=== PATIENT | female | born 2000 | race African-American/Black ===

== ENCOUNTER 2021-07-01 00:43 | Emergency (ER) | payer MEDICAID ==
[~2021-07-01] VITALS: Ht 152.4 cm; Wt 91.0 kg
[2021-07-01 01:39] LABS: CLARITY URINE CLOUDY (CLEAR); COLOR URINE YELLOW (YELLOW); KETONES URINE 3+ (NEGATIVE); LEUKOCYTE ESTERASE URINE NEGATIVE (NEGATIVE); NITRITE URINE NEGATIVE (NEGATIVE); OCCULT BLOOD URINE TRACE (NEGATIVE); PROTEIN URINE TRACE (NEGATIVE); SPECIFIC GRAVITY URINE 1.024 (1.005-1.030)
[2021-07-01] MEDS ORDERED: ACETAMINOPHEN 500MG TABLET PO ONE (01:45)
[2021-07-01] MEDS ORDERED: IBUPROFEN 800MG TABLET PO ONE (01:45)
[2021-07-01] MEDS ORDERED: KETOROLAC 30MG/ML VIAL IM ONE (02:00)
[2021-07-01] MEDS ORDERED: HYDROCODONE/ACETAMINOPHEN 5/325MG TABLET PO ONE (03:15)
[2021-07-01 03:43] VITALS: BP 130/92
[2021-07-01] MEDS ORDERED: NAPR-681 MT (04:04)
[2021-07-01] MEDS ORDERED: T3 PO (04:04)
== END 2021-07-01 04:18 | disposition home or self-care (01) ==
LOC: ER 01:10
DX: M54.9 Dorsalgia, unspecified (principal); M54.50 Low back pain, unspecified; M62.830 Muscle spasm of back
CPT/HCPCS: 81003; 81025; 96372; 99283; J1885